=== PATIENT | female | born 1990 | race Caucasian/White ===

== ENCOUNTER → 2018-12-22 | Day surgery (SDC) | payer OTHER ==
[~2018-12-22] MED LIST: FENTANYL CITRATE/PF 100MCG/2 ML INJ ONE; MIDAZOLAM HCL 2 MG/2 ML VIAL ONE; PROPOFOL IV EMULSION 10 MG/ML 50 ML VIAL ONE; RANITIDINE PO
--- OUTSIDE RECORDS SUMMARY | 2018-12-22 07:41 | XMS REPORT | Continuity of Care Document ---
Author Author Madison manuel [employer] Interface Address Unknown Phone Unavailable Problems Problem Status Onset Date Classification Date Reported Comments Source R10.31 - RIGHT LOWER QUADRANT PAIN Active 09/16/2018 DEB Badillo Medications Medication Details Route Status Patient Instructions Ordering Provider Order Date Source Allergies, Adverse Reactions, Alerts Substance Category Reaction Severity Reaction type Status Date Reported Comments Source Immunizations Immunization Date Given Site Status Last Updated Comments Source Results Order Name Results Value Reference Range Date Interpretation Comments Source Abdomen/Pelvis w/wo IV contrast CT Abdomen/Pelvis w/wo IV contrast CT EXAM: CT ABDOMEN AND PELVIS WITH AND WITHOUT CONTRAST DATE: 09/18/2018 12:00 PM 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 Diarrhea for the past one week. ADDITIONAL INFORMATION: History of appendectomy one year ago. No reported history of cancer. COMPARISON: None. TECHNIQUE: Volumetric CT acquisition of the abdomen and pelvis before and after intravenous contrast. Axial, coronal and sagittal reconstructions. Postcontrast phases: Venous and delayed. IV contrast: 100 cc of Omnipaque 300 Oral contrast: 900 cc of oral Omnipaque 300 and water mixture. DLP: 1139 mGy-cm FINDINGS: Lines and tubes: None. Lower thorax: Lung bases are clear. No pleural or pericardial effusions are seen. Liver: A small area of hypodensity is seen adjacent to the fissure for ligamentum teres anteriorly on image 24 series 3, likely focal fatty infiltration. The liver is mildly enlarged measuring 17.9 cm in length. Liver displays normal density.. Biliary tree: No intra- or extrahepatic biliary ductal dilation. Gallbladder: Normal. No CT evidence of gallstones. Pancreas: Normal. Spleen: Normal. Adrenals: Normal. Kidneys and ureters: The kidneys enhance symmetrically and normally with prompt excretion of contrast material. No hydronephrosis, masses, or calculi are seen. The ureters are of normal course and caliber with no constricting or obstructing lesions. Bladder: Normal. Reproductive organs: Within the right ovary, there is a 2.3 cm in maximal diameter simple fluid attenuation nonenhancing cystic lesion with thin sellers compatible with a benign cyst or dominant follicle. Other small follicles are seen within the ovaries with no left ovarian abnormalities detected. No uterine pathology is seen. No vaginal abnormalities are noted. Gastrointestinal tract: The stomach is normal in appearance. No abnormalities of the large and small bowel are seen. The small intestine and colon are of normal course and caliber with no constricting or obstructing lesions, masses, or surrounding inflammatory changes. No rectal or perirectal abnormalities are seen. Appendix: Surgically absent with surgical clip in the cecum Peritoneum and retroperitoneum: No lymphadenopathy, ascites or free air. Lymph nodes: No abdominal or pelvic lymphadenopathy is seen. Vasculature: No abnormalities of the abdominal aorta, inferior vena cava, portal venous system, or other major visualized branches are detected. Bones: Degenerative changes are seen in the inferior thoracic spine with multilevel Schmorl's formation and disc space narrowing. A nonaggressive appearing 7 mm well-demarcated sclerotic lesion is seen within the right superior acetabulum, likely a benign bone island.. Soft tissues/abdominal wall: Normal. No hernias, masses, or fluid collections are seen. IMPRESSION: 1. 2.3 cm probably benign simple cystic structure/lesion in the right ovary, likely a benign simple cyst or dominant follicle. If symptoms persist or worsen, pelvic sonography may be performed for further evaluation 2. The appendix is surgically absent. No other abnormalities of the right lower quadrant of the abdomen/pelvis are seen to explain the patient's symptoms. 3. Mild nonspecific hepatomegaly. A small focus of focal fatty infiltration is seen along the fissure for ligamentum teres. 09/18/2018 - - Read by: Contreras Coley MD Dictated Date/time: 09/18/18 12:53 Electronically Signed by: Contreras Coley MD 09/18/18 13:30 FINAL REPORT JULISA Badillo Barium swallow DX Barium swallow DX EXAM: FLUOROSCOPY BARIUM ESOPHAGRAM DOUBLE CONTRAST DATE: 08/31/2018 11:10 AM CDT INDICATION: - R13.10 Dysphagia, unspecified ADDITIONAL INFORMATION: None. COMPARISON: None. TECHNIQUE: Barium esophagram was performed using double contrast technique. FLUOROSCOPY TIME: 1 minute 32 seconds.. DISCUSSION: The patient swallowed oral liquid barium without difficulty. Esophagus has normal contour, caliber and motility. No mucosal irregularities. Contrast passes easily through the gastroesophageal junction into the stomach. No hiatal hernia. Gastroesophageal reflux was seen intermittently into the distal esophagus. Patient swallowed a 13 mm barium tablet without difficulty. IMPRESSION: Gastroesophageal reflux seen extending into the distal esophagus. Otherwise unremarkable barium swallow. 08/31/2018 - - Read by: Radha Pierre MD Dictated Date/time: 08/31/18 15:38 Electronically Signed by: Radah Pierre MD 08/31/18 15:45 FINAL REPORT DEB Badillo Chest 2 views DX Chest 2 views DX Study: Chest 2 views DX Clinical Indication: - R/o pneumonia Comparison: None FINDINGS: The cardiac silhouette is normal in size. The lungs are clear and without consolidation or congestion. No pleural effusion or pneumothorax is seen. The osseous structures are unremarkable. IMPRESSION: No acute cardiopulmonary disease. SL: SLEE-PC 08/01/2018 - - Read by: Gelacio Brown MD Dictated Date/time: 08/01/18 19:17 Electronically Signed by: Gelcaio Brown MD 08/01/18 19:18 FINAL REPORT [facility] Vital Signs Vital Sign Value Date Comments Source Encounters Location Location Details Encounter Type Encounter Number Reason For Visit Attending Provider ADM Date DC Date Status Source Outpatient [id number] CARMEN BOND 08/01/2018 Active [facility] Outpatient [id number] NEETA TROY 09/18/2018 Active [facility] Procedures Procedure Code Date Perfomer Comments Source
[2018-12-22 10:30] VITALS: BP 107/76
== END | disposition home or self-care (01) ==
LOC: OR 07:38
PROVIDERS: ATTEND Internal Medicine Gastroenterology
DX: K92.1 Melena (principal); K21.9 Gastro-esophageal reflux disease without esophagitis; E21.3 Hyperparathyroidism, unspecified; M51.24 Other intervertebral disc displacement, thoracic region; N83.201 Unspecified ovarian cyst, right side; F41.9 Anxiety disorder, unspecified
CPT/HCPCS: 45380; 81025; J2250; J2704; 45378